=== PATIENT | female | born 1975 | race Hispanic/Latino ===

== ENCOUNTER 2023-12-20 15:58 | Emergency (ER) | payer BC ==
[~2023-12-20] VITALS: Ht 149.9 cm; Wt 108.0 kg
[2023-12-20 16:35] LABS: BASOPHILS # (AUTO) 0.04 K/uL (0.00-0.20); BASOPHILS % (AUTO) 0.6 % (0.0-5.0); EOSINOPHILS # (AUTO) 0.14 K/uL (0.00-0.70); EOSINOPHILS % (AUTO) 2.2 % (0.0-8.0); HEMATOCRIT 44.8 % (36-48); IMMATURE GRANULOCYTE ABSOLUTE 0.05 K/uL (0-1); MEAN CORPUSCULAR HEMOGLOBIN 29.8 pg (27.0-33.0); MEAN CORPUSCULAR HGB CONC 33.9 g/dL (32.0-36.0); MEAN CORPUSCULAR VOLUME 87.8 fL (79-99); MONOCYTES # (AUTO) 0.4 K/uL (0.1-1.0); MONOCYTES % (AUTO) 6.4 % (3.0-13.0); NEUTROPHILS # (AUTO) 3.7 K/uL (1.8-7.7); PLATELET COUNT (AUTO) 211 K/uL (130-400); RED CELL DISTRIBUTION WIDTH 12.6 % (11.0-15.5); WHITE BLOOD COUNT (AUTO) 6.4 K/uL (4.8-10.8)
[2023-12-20 17:02] LABS: CREATININE 0.6 mg/dL (0.5-1.0); POTASSIUM 3.6 mmol/L (3.5-5.1)
[2023-12-20 17:13] LABS: ALBUMIN 3.7 g/dL (3.5-5.0); BILIRUBIN,TOTAL 0.4 mg/dL (0.2-1.0); TOTAL PROTEIN, SERUM 7.6 g/dL (6.0-8.3)
[2023-12-20] MEDS: CLINDAMYCIN IVPB 600MG/50ML 50 ML IV SCH (17:30)
[2023-12-20] MEDS ORDERED: CLIN-141 PO (17:39)
[2023-12-20] MEDS ORDERED: IVER3 PO (17:39)
[2023-12-20] MEDS ORDERED: MUPI22O TP (17:39)
[2023-12-20] MEDS: CLINDAMYCIN 150 MG CAP PO ONE (17:45)
[2023-12-20 18:15] VITALS: BP 133/78; PULSE 20; RESP 18; O2SAT 98
== END 2023-12-20 18:24 | disposition home or self-care (01) ==
LOC: EDH 15:58
DX: B86 Scabies (principal); L30.9 Dermatitis, unspecified; E11.65 Type 2 diabetes mellitus with hyperglycemia; I10 Essential (primary) hypertension
CPT/HCPCS: 36415; 80053; 83605; 85025; 87040